=== PATIENT | female | born 1990 | race Caucasian/White ===

== ENCOUNTER 2017-10-17 13:47 | Day surgery (SDC) | payer OTHER ==
[~2017-10-17] VITALS: Ht 152.4 cm; Wt 51.5 kg
[~2017-10-17 13:47] MED LIST: PNV1TABL11 PO
[2017-10-17] MEDS ORDERED: LACTATED RINGERS 1,000 ML IV SCH (14:18)
[2017-10-17] MEDS ORDERED: PLEASE ENTER HEIGHT AND WEIGHT MC SCH (14:30)
[2017-10-17 14:34] LABS: HCG UR LOT HCG706132
[2017-10-17 14:35] VITALS: BP 117/76
[2017-10-17 14:38] LABS: HCG UR OBC PASS
[2017-10-17] MEDS ORDERED: BUPIVACAINE/PF 0.25% ONE (17:20)
[2017-10-17] MEDS ORDERED: EPINEPHRINE 1 MG/ML, 1ML ONE (17:21)
[2017-10-17] MEDS ORDERED: OXYTOCIN 10 UNITS/ML, 1ML ONE (17:21)
[2017-10-17] MEDS ORDERED: MISOPROSTOL 200 MCG TABLET ONE (17:21)
[2017-10-17] MEDS ORDERED: SILVER NITRATE STICK TP ONE (17:21)
[2017-10-17] MEDS ORDERED: MIDAZOLAM 1 MG/ML, 2ML ONE (17:27)
[2017-10-17] MEDS ORDERED: FENTANYL PF 100 MCG/2ML ONE (17:28)
[2017-10-17] MEDS ORDERED: KETOROLAC 30 MG/1 ML ONE (18:08)
[2017-10-17] MEDS ORDERED: DEXAMETHASONE 4 MG/ML, 1ML ONE (18:08)
[2017-10-17] MEDS ORDERED: ONDANSETRON 2MG/ML, 2ML ONE (18:08)
[2017-10-17] MEDS ORDERED: PROPOFOL 10 MG/ML, 20ML ONE (18:08)
[2017-10-17] MEDS ORDERED: FENTANYL PF 100 MCG/2ML IV PRN (18:30)
[2017-10-17] MEDS ORDERED: MEPERIDINE/PF 25MG/0.5ML IVPush PRN (18:30)
[2017-10-17] MEDS ORDERED: PROMETHAZINE 25 MG/ML, 1ML IV PRN (18:30)
[2017-10-17] MEDS ORDERED: OXYcodone 5 MG/5 ML ORAL.SOL UDC PO PRN (18:30)
[2017-10-17] MEDS ORDERED: ACETAMINOPHEN 325 MG TABLET PO PRN (18:30)
[2017-10-17] MEDS ORDERED: HYDROmorphone 1 MG/ML, 1ML IV PRN (18:30)
[2017-10-17] MEDS ORDERED: ACETAMINOPHEN 325 MG TABLET ONE (18:59)
[2017-10-17] MEDS ORDERED: ACETAMINOPHEN 650 MG/20.3 ML UDC ONE (18:59)
[2017-10-17] MEDS ORDERED: OXYcodone/APAP 5/325MG TABLET PO PRN (20:30)
[2017-10-17] MEDS ORDERED: morphine SULFATE 10 MG/ML, 1ML IV PRN (20:30)
== END 2017-10-17 21:13 | disposition home or self-care (01) ==
LOC: OR 13:47 → LDIP 19:50 → OR 21:13
PROVIDERS: ATTEND Obstetrics & Gynecology
DX: N92.0 Excessive and frequent menstruation with regular cycle (principal)
CPT/HCPCS: 58120; 81025; 88305; J0171; J1100; J1885; J2250; J2405; J2704; J3010; J3490; J7120; J2590